=== PATIENT | female | born 1945 | race Caucasian/White ===

== ENCOUNTER 2023-06-09 02:12 | Inpatient (IN) | payer MEDICARE ==
[2023-06-09] VITALS (7 sets, daily range): BP systolic 121–159; BP diastolic 56–98; TEMP 98.3–99; O2SAT 94–100
[~2023-06-09] VITALS: Ht 170.2 cm; Wt 108.4 kg
[~2023-06-09 02:12] MED LIST: ACET325T53 PO; ASPI-1169 PO; ATOR40TA PO; CEPH250S PO; CHOL200013 PO; CLOP75TA15 PO; CRAN425C6 PO; DOCU-141 PO; HYDR-4209 PO; MAGN400O6 PO; MAGN400T8 PO; NA P133E RC; PALI156D IM; RISP2TAB5 PO
[2023-06-09 03:26] LABS: BASOPHILS # (AUTO) 0.2 K/uL (0.0-0.2); BASOPHILS % (AUTO) 2.3 % (0.0-2.0); EOSINOPHILS % (AUTO) 0.1 % (0.0-6.0); HEMATOCRIT 37 % (33-45); HEMOGLOBIN 12.5 g/dL (11.5-14.8); LYMPHOCYTES # (AUTO) 0.3 K/uL (0.8-4.8); LYMPHOCYTES % (AUTO) 4.2 % (20.0-44.0); MEAN CORPUSCULAR HEMOGLOBIN 31 PG (26.0-33.0); MEAN CORPUSCULAR HGB CONC 34 g/dl (31.0-36.0); MEAN CORPUSCULAR VOLUME 93 fL (82-100); MONOCYTES # (AUTO) 0.4 K/uL (0.1-1.30); MONOCYTES % (AUTO) 6.4 % (2.0-12.0); NEUTROPHILS # (AUTO) 6.1 K/uL (1.8-8.9); PLATELET COUNT (AUTO) 157 K/uL (150-450); RED BLOOD CELL COUNT(AUTO) 4.01 MIL/uL (4.0-5.2); RED CELL DISTRIBUTION WIDTH 14.3 % (11.5-15.0)
[2023-06-09 03:40] LABS: ALBUMIN 3.1 g/dL (3.4-5.0); BILIRUBIN,DIRECT 0.2 mg/dL (0.0-0.2); BILIRUBIN,TOTAL 0.9 mg/dL (0.2-1.0); CALCIUM, SERUM 8.4 mg/dL (8.5-10.1); CREATININE 0.8 mg/dL (0.6-1.3); POTASSIUM 3.6 mmol/L (3.5-5.1); TOTAL PROTEIN, SERUM 7.1 g/dL (6.4-8.2)
[2023-06-09 03:45] LABS: LACTIC ACID 1.2 mmol/L (0.4-2.0)
[2023-06-09] MEDS ORDERED: CEFEPIME 1 GM VIAL ONE (03:59)
[2023-06-09] MEDS: CEFEPIME 1 GM in IV D5W 50 ML IV ONE (04:10)
[2023-06-09] MEDS ORDERED: MAGNESIUM HYDROXIDE 30 ML UDC PO PRN (04:30)
[2023-06-09] MEDS ORDERED: Z GUARD REMEDY 4 OZ OINT TP PRN (04:30)
[2023-06-09] MEDS ORDERED: ONDANSETRON HCL/PF 4 MG/2 ML VIAL IVP PRN (04:30)
[2023-06-09] MEDS ORDERED: ENOXAPARIN SODIUM 40 MG/0.4 ML DISP.SYRIN SQ SCH (04:30)
[2023-06-09] MEDS ORDERED: ACETAMINOPHEN 325 MG TABLET ONE (05:21)
[2023-06-09] MEDS: ACETAMINOPHEN 325 MG TABLET PO PRN (05:24)
[2023-06-09] MEDS: PANTOPRAZOLE 40 MG TABLET.DR PO SCH (08:34)
[2023-06-09] MEDS ORDERED: APIX5TAB PO (08:47)
[2023-06-09] MEDS ORDERED: METO25TA6 PO (08:47)
[2023-06-09] MEDS ORDERED: ATOR10TA PO (08:47)
[2023-06-09] MEDS ORDERED: LOSA50TA39 PO (08:47)
[2023-06-09] MEDS: DOXYCYCLINE 100 MG in IV D5W 100 ML IV SCH (08:58)
[2023-06-09] MEDS: ALBUTEROL HALF STRENGTH 1.25 MG/3 ML VIAL.NEB NEB SCH (11:30)
[2023-06-09] MEDS: IPRATROPIUM NEB FS 0.5 MG/2.5 ML AMPUL.NEB NEB SCH (11:30)
[2023-06-09] MEDS: APIXABAN 5 MG TABLET PO SCH (16:29)
[2023-06-09] MEDS: METOPROLOL TARTRATE 25 MG TABLET PO SCH (16:44)
[2023-06-09] MEDS: IV NS 0.9% 250 ML IV PRN (17:47)
[2023-06-09] MEDS: FUROSEMIDE 20 MG/2 ML VIAL IV SCH (20:59)
[2023-06-10] VITALS (11 sets, daily range): BP systolic 106–132; BP diastolic 52–84; TEMP 98–98.8; O2SAT 95–100
[2023-06-10] MEDS: BENZONATATE 100 MG CAPSULE PO PRN (01:58)
[2023-06-10] MEDS: BENZONATATE 100 MG CAPSULE PO ONE (01:58)
[2023-06-10 06:49] LABS: BASOPHILS % (AUTO) 0.6 % (0.0-2.0); EOSINOPHILS % (AUTO) 0.2 % (0.0-6.0); HEMATOCRIT 37 % (33-45); HEMOGLOBIN 12.3 g/dL (11.5-14.8); LYMPHOCYTES % (AUTO) 16.2 % (20.0-44.0); MEAN CORPUSCULAR HEMOGLOBIN 31 PG (26.0-33.0); MEAN CORPUSCULAR HGB CONC 34 g/dl (31.0-36.0); MEAN CORPUSCULAR VOLUME 93 fL (82-100); MONOCYTES # (AUTO) 0.5 K/uL (0.1-1.30); MONOCYTES % (AUTO) 7.7 % (2.0-12.0); NEUTROPHILS # (AUTO) 4.7 K/uL (1.8-8.9); NEUTROPHILS % (AUTO) 75.3 % (43.0-81.0); PLATELET COUNT (AUTO) 154 K/uL (150-450); RED BLOOD CELL COUNT(AUTO) 3.96 MIL/uL (4.0-5.2); RED CELL DISTRIBUTION WIDTH 14.3 % (11.5-15.0); WHITE BLOOD COUNT (AUTO) 6.3 K/uL (4.3-11.0)
[2023-06-10 06:58] LABS: CREATININE 0.8 mg/dL (0.6-1.3); MAGNESIUM 1.8 mg/dL (1.8-2.4); PHOSPHORUS 3.8 mg/dL (2.5-4.9)
[2023-06-10] MEDS: LOSARTAN POTASSIUM 50 MG TABLET PO SCH (09:06)
[2023-06-10] MEDS: METOPROLOL TARTRATE 25 MG TABLET PO SCH (09:06)
[2023-06-10] MEDS: CEFTRIAXONE 1 G in IV D5W 50 ML IV SCH (09:07)
[2023-06-11] VITALS (15 sets, daily range): BP systolic 115–138; BP diastolic 57–77; TEMP 97.5–98.8; O2SAT 97–100
[2023-06-11] MEDS: DOXYCYCLINE HYCLATE (100 MG) 100 MG TABLET PO SCH (08:31)
[2023-06-11 14:17] LABS: BASOPHILS % (AUTO) 0.4 % (0.0-2.0); EOSINOPHILS % (AUTO) 0.4 % (0.0-6.0); HEMATOCRIT 38 % (33-45); HEMOGLOBIN 12.5 g/dL (11.5-14.8); LYMPHOCYTES # (AUTO) 0.9 K/uL (0.8-4.8); MEAN CORPUSCULAR HEMOGLOBIN 31 PG (26.0-33.0); MEAN CORPUSCULAR HGB CONC 33 g/dl (31.0-36.0); MEAN CORPUSCULAR VOLUME 92 fL (82-100); MONOCYTES # (AUTO) 0.7 K/uL (0.1-1.30); MONOCYTES % (AUTO) 12.6 % (2.0-12.0); NEUTROPHILS # (AUTO) 3.8 K/uL (1.8-8.9); NEUTROPHILS % (AUTO) 69.6 % (43.0-81.0); PLATELET COUNT (AUTO) 148 K/uL (150-450); RED BLOOD CELL COUNT(AUTO) 4.11 MIL/uL (4.0-5.2); RED CELL DISTRIBUTION WIDTH 14.3 % (11.5-15.0); WHITE BLOOD COUNT (AUTO) 5.5 K/uL (4.3-11.0)
[2023-06-12] VITALS (12 sets, daily range): BP systolic 100–128; BP diastolic 50–67; TEMP 97.2–98.8; O2SAT 96–100
[2023-06-12] MEDS: methylPREDNISolone SOD SUCC 125 MG/2ML VIAL IV SCH (15:54)
[2023-06-13] VITALS (14 sets, daily range): BP systolic 116–135; BP diastolic 56–70; TEMP 97.9–98.6; O2SAT 94–100
[2023-06-14] VITALS (18 sets, daily range): BP systolic 114–138; BP diastolic 55–80; TEMP 97.3–98.2; O2SAT 94–99
[2023-06-14 07:13] LABS: BASOPHILS % (AUTO) 0.1 % (0.0-2.0); EOSINOPHILS % (AUTO) 0.1 % (0.0-6.0); HEMATOCRIT 37 % (33-45); HEMOGLOBIN 12.6 g/dL (11.5-14.8); LYMPHOCYTES # (AUTO) 1.5 K/uL (0.8-4.8); LYMPHOCYTES % (AUTO) 20.5 % (20.0-44.0); MEAN CORPUSCULAR HEMOGLOBIN 31 PG (26.0-33.0); MEAN CORPUSCULAR HGB CONC 34 g/dl (31.0-36.0); MEAN CORPUSCULAR VOLUME 90 fL (82-100); MONOCYTES % (AUTO) 13.1 % (2.0-12.0); NEUTROPHILS % (AUTO) 66.2 % (43.0-81.0); PLATELET COUNT (AUTO) 170 K/uL (150-450); RED BLOOD CELL COUNT(AUTO) 4.12 MIL/uL (4.0-5.2); RED CELL DISTRIBUTION WIDTH 14.2 % (11.5-15.0); WHITE BLOOD COUNT (AUTO) 7.5 K/uL (4.3-11.0)
[2023-06-14 08:43] LABS: CALCIUM, SERUM 9.1 mg/dL (8.5-10.1); CREATININE 0.8 mg/dL (0.6-1.3); MAGNESIUM 1.8 mg/dL (1.8-2.4); PHOSPHORUS 3.4 mg/dL (2.5-4.9)
[2023-06-14] MEDS: methylPREDNISolone SOD SUCC 40 MG/ML VIAL IV SCH (09:06)
[2023-06-14] MEDS ORDERED: PRED10TA PO (17:18)
[2023-06-14] MEDS ORDERED: DOXY100C2 PO (17:18)
[2023-06-14] MEDS ORDERED: BUDE10.2 INH (17:18)
== END 2023-06-14 23:50 | disposition home health service (06) | DRG 202 ==
LOC: ER 02:13 → TELE1 07:39
PROVIDERS: ADMIT Internal Medicine; ATTEND Student in an Organized Health Care Education/Training Program
DX: J20.9 Acute bronchitis, unspecified (principal); E43 Unspecified severe protein-calorie malnutrition; J15.9 Unspecified bacterial pneumonia; J96.01 Acute respiratory failure with hypoxia; D68.59 Other primary thrombophilia; E66.01 Morbid (severe) obesity due to excess calories; E88.09 Other disorders of plasma-protein metabolism, not elsewhere classified; F20.9 Schizophrenia, unspecified; F31.9 Bipolar disorder, unspecified; I48.91 Unspecified atrial fibrillation; K21.9 Gastro-esophageal reflux disease without esophagitis; Z79.82 Long term (current) use of aspirin; Z86.73 Personal history of transient ischemic attack (TIA), and cerebral infarction without residual deficits; Z20.822 Contact with and (suspected) exposure to COVID-19; J98.4 Other disorders of lung; Z68.37 Body mass index [BMI] 37.0-37.9, adult; I51.89 Other ill-defined heart diseases; I10 Essential (primary) hypertension
CPT/HCPCS: 36415; 71045-TC; 71250-TC; 80048-TC; 80061-TC; 80076-TC; 83605-TC; 83735-TC; 83880; 84100-TC; 84484-TC; 85025-TC; 87040-TC; 93307-TC; 94760-TC; 94799-TC; 97112-TC; 97116-TC; 97530-TC; A4223; G0378; J0692; J0696; J1940; J2920; J2930; J3490; J7050; J7060

== ENCOUNTER 2025-01-19 18:40 | Inpatient (IN) | payer MEDICARE ==
[~2025-01-19] VITALS: Ht 165.1 cm; Wt 112.0 kg
[~2025-01-19 18:40] MED LIST changes: -ACET325T53 PO; +APIX5TAB PO; -ASPI-1169 PO; +ATOR10TA PO; -ATOR40TA PO; +BUDE10.2 INH; -CEPH250S PO; -CHOL200013 PO; -CLOP75TA15 PO; -CRAN425C6 PO; -DOCU-141 PO; +DOXY100C2 PO; -HYDR-4209 PO; +LOSA50TA39 PO; -MAGN400O6 PO; -MAGN400T8 PO; +METO25TA6 PO; -NA P133E RC; -PALI156D IM; +PRED10TA PO; -RISP2TAB5 PO
[2025-01-19] MEDS ORDERED: ONDANSETRON HCL/PF 4 MG/2 ML VIAL ONE (19:20)
[2025-01-19] MEDS ORDERED: MORPHINE SULFATE INJ 2 MG/ML DISP.SYRIN ONE (19:20)
[2025-01-19] MEDS ORDERED: FAMOTIDINE/PF INJ 20 MG/2 ML VIAL IV ONE (19:21)
[2025-01-19] MEDS: IV NS 0.9% 500 ML BAG IV ONE (19:26)
[2025-01-19 19:27] LABS: PLATELET COUNT (AUTO) 200 K/uL (150-450); RED BLOOD CELL COUNT(AUTO) 4.66 MIL/uL (4.0-5.2); RED CELL DISTRIBUTION WIDTH 14.8 % (11.5-15.0); WHITE BLOOD COUNT (AUTO) 12.2 K/uL (4.3-11.0)
[2025-01-19] MEDS: ONDANSETRON HCL/PF 4 MG/2 ML VIAL IV ONE (19:27)
[2025-01-19] MEDS: MORPHINE SULFATE INJ 2 MG/ML DISP.SYRIN IV ONE ×2 (19:27→22:09)
[2025-01-19] MEDS: FAMOTIDINE/PF INJ 20 MG/2 ML VIAL IV ONE (19:27)
[2025-01-19 19:35] LABS: CALCIUM, SERUM 8.7 mg/dL (8.5-10.1); CREATININE 0.8 mg/dL (0.6-1.3); SODIUM SERUM 142 mmol/L (136-145); UREA NITROGEN, BLOOD 19 mg/dL (7-18)
[2025-01-19] MEDS ORDERED: IOHEXOL-350 100 ML VIAL IV ONE (19:38)
[2025-01-19] MEDS ORDERED: IV NS 0.9% 250 ML IV ONE (19:38)
[2025-01-19] MEDS ORDERED: CT SWABBABLE VALVE TRANS SET 1 EA INFUS.SET MC ONE (19:38)
[2025-01-19 19:40] LABS: INR 1.13 (0.91-1.10)
[2025-01-19 19:41] LABS: ASPARTATE AMINOTRANSFERASE 28 U/L (15-37); TOTAL PROTEIN, SERUM 7.4 g/dL (6.4-8.2)
[2025-01-19 21:15] LABS: OCCULT BLOOD STOOL POSITIVE (NEGATIVE)
[2025-01-19] MEDS ORDERED: MORPHINE SULFATE INJ 4 MG/ML DISP.SYRIN ONE (21:57)
[2025-01-19] MEDS ORDERED: PIPERACI/TAZO 3.375GM/D5W 50ML PB IV ONE (21:57)
[2025-01-19] MEDS: PIPERACILLIN /TAZOBACTAM 3.375 G in IV D5W 50 ML IV ONE (22:09)
[2025-01-19] MEDS ORDERED: DOSING PER PHARMACY-ZOSYN IV 1 EA EA XX PRN (23:00)
[2025-01-19] MEDS ORDERED: ACETAMINOPHEN 325 MG TABLET PO PRN (23:00)
[2025-01-19] MEDS ORDERED: MAG HYDROX/AL HYDROX/SIMETH 30 ML UDC PO PRN (23:00)
[2025-01-19] MEDS ORDERED: MAGNESIUM HYDROXIDE 30 ML UDC PO PRN (23:00)
[2025-01-20] MEDS: PANTOPRAZOLE 40 MG VIAL IV SCH (00:47)
[2025-01-20] MEDS: IV NS 0.9% 1,000 ML IV PRN (00:47)
[2025-01-20 01:20] VITALS: BP 149/69; TEMP 98.1; O2SAT 98
[2025-01-20] MEDS: PIPERACI/TAZO 3.375GM/D5W 50ML PB IV ONE (05:11)
[2025-01-20] MEDS: PIPERACILLIN /TAZOBACTAM 3.375 G in IV D5W 50 ML IV ONE (05:15)
[2025-01-20] MEDS: ONDANSETRON HCL/PF 4 MG/2 ML VIAL IVP PRN (05:23)
[2025-01-20 07:09] LABS: PLATELET COUNT (AUTO) 175 K/uL (150-450); RED BLOOD CELL COUNT(AUTO) 4.33 MIL/uL (4.0-5.2); RED CELL DISTRIBUTION WIDTH 14.5 % (11.5-15.0); WHITE BLOOD COUNT (AUTO) 12.0 K/uL (4.3-11.0)
[2025-01-20 07:21] LABS: ASPARTATE AMINOTRANSFERASE 24.0 U/L (15-37); CALCIUM, SERUM 7.9 mg/dL (8.5-10.1); CREATININE 0.9 mg/dL (0.6-1.3); PHOSPHORUS 4.7 mg/dL (2.5-4.9); SODIUM SERUM 144.0 mmol/L (136-145); TOTAL PROTEIN, SERUM 6.2 g/dL (6.4-8.2); UREA NITROGEN, BLOOD 15.0 mg/dL (7-18)
[2025-01-20 07:29] LABS: INR 1.11 (0.91-1.10)
[2025-01-20 08:00] VITALS: BP 127/81; TEMP 97.5; O2SAT 94
[2025-01-20] MEDS ORDERED: SPIR25TA6 PO (08:21)
[2025-01-20] MEDS ORDERED: FURO-145 PO (08:21)
[2025-01-20] MEDS ORDERED: BRIM5DRO11 LEFTEYE (08:21)
[2025-01-20] MEDS ORDERED: ATOR40TA PO (08:21)
[2025-01-20] MEDS ORDERED: WEGOVY PO (08:21)
[2025-01-20] MEDS ORDERED: UBID100C45 PO (09:06)
[2025-01-20] MEDS ORDERED: OMEG10006 PO (09:06)
[2025-01-20] MEDS ORDERED: MULT-1160 PO (09:06)
[2025-01-20] MEDS ORDERED: CALC-1036 PO (09:06)
[2025-01-20] MEDS ORDERED: CHOL100043 PO (09:06)
[2025-01-20] MEDS ORDERED: MULT-1095 PO (09:06)
[2025-01-20] MEDS ORDERED: HOME MED MISCELLANEOUS XX SCH ×4 (10:30)
[2025-01-20] MEDS ORDERED: MORPHINE SULFATE INJ 2 MG/ML DISP.SYRIN IV PRN (11:00)
[2025-01-20] MEDS: MULTIVIT W/MINERALS 1 TAB TABLET PO SCH (11:28)
[2025-01-20 12:00] VITALS: BP 133/60; TEMP 98.4; O2SAT 93
[2025-01-20] MEDS: POTASSIUM CHLORIDE 20 MEQ POWDER PACKET PO ONE (13:54)
[2025-01-20] MEDS: PIPERACILLIN /TAZOBACTAM 3.375 G in IV D5W 100 ML IV SCH (13:55)
[2025-01-20 16:00] VITALS: BP 140/60; TEMP 97.7; O2SAT 93
[2025-01-20] MEDS: BRIMONIDINE TARTRATE OPHT SOLN 5 ML BOTTLE LEFTEYE SCH (17:19)
[2025-01-20] MEDS: DILTIAZEM HCL CD 240 MG PO SCH (17:19)
[2025-01-20] MEDS: METOPROLOL TARTRATE 25 MG TABLET PO SCH (17:19)
[2025-01-20 20:00] VITALS: BP 117/55; TEMP 97.5; O2SAT 95
[2025-01-21 07:46] LABS: PLATELET COUNT (AUTO) 190 K/uL (150-450); RED BLOOD CELL COUNT(AUTO) 4.23 MIL/uL (4.0-5.2); RED CELL DISTRIBUTION WIDTH 14.5 % (11.5-15.0); WHITE BLOOD COUNT (AUTO) 11.7 K/uL (4.3-11.0)
[2025-01-21 08:00] VITALS: BP 127/65; TEMP 97.7; O2SAT 95
[2025-01-21 09:04] LABS: CALCIUM, SERUM 8.0 mg/dL (8.5-10.1); CREATININE 0.9 mg/dL (0.6-1.3); SODIUM SERUM 144.0 mmol/L (136-145); UREA NITROGEN, BLOOD 14.0 mg/dL (7-18)
[2025-01-21 09:09] LABS: PHOSPHORUS 3.3 mg/dL (2.5-4.9)
[2025-01-21] MEDS ORDERED: HYDROCODONE/APAP 5/325MG TABLET PO PRN (10:00)
[2025-01-21] MEDS: CHOLECALCIFEROL 1,000 UNIT TABLET (VIT D3) GT SCH (10:25)
[2025-01-21] MEDS: ATORVASTATIN 40 MG TABLET PO SCH (10:25)
[2025-01-21] MEDS: LOSARTAN POTASSIUM 50 MG TABLET PO SCH (10:27)
[2025-01-21] MEDS: APIXABAN 5 MG TABLET PO SCH (10:31)
[2025-01-21] MEDS: SPIRONOLACTONE 25 MG TABLET PO SCH (10:32)
[2025-01-21 16:00] VITALS: BP 107/50; TEMP 97.5; O2SAT 95
[2025-01-21 20:00] VITALS: BP 113/45; TEMP 97.5; O2SAT 95
[2025-01-22 06:44] LABS: PLATELET COUNT (AUTO) 161 K/uL (150-450); RED BLOOD CELL COUNT(AUTO) 3.89 MIL/uL (4.0-5.2); RED CELL DISTRIBUTION WIDTH 14.9 % (11.5-15.0); WHITE BLOOD COUNT (AUTO) 10.2 K/uL (4.3-11.0)
[2025-01-22 06:56] LABS: CALCIUM, SERUM 7.9 mg/dL (8.5-10.1); CREATININE 1.0 mg/dL (0.6-1.3); SODIUM SERUM 141.0 mmol/L (136-145); UREA NITROGEN, BLOOD 16.0 mg/dL (7-18)
[2025-01-22 08:00] VITALS: BP 117/50; TEMP 97.5; O2SAT 100
[2025-01-22] MEDS: POTASSIUM CHLORIDE 20 MEQ POWDER PACKET PO ONE ×2 (09:52→12:36)
[2025-01-22] MEDS ORDERED: IOHEXOL-350 100 ML VIAL IV ONE (13:29)
[2025-01-22] MEDS ORDERED: IV NS 0.9% 250 ML IV ONE (13:30)
[2025-01-22 16:00] VITALS: BP 121/63; TEMP 97.9; O2SAT 95
[2025-01-22 20:00] VITALS: BP 127/66; TEMP 98.2; O2SAT 94
[2025-01-23 00:09] VITALS: BP 127/66; TEMP 98.2; O2SAT 94
[2025-01-23 07:57] LABS: CALCIUM, SERUM 8.2 mg/dL (8.5-10.1); CREATININE 0.9 mg/dL (0.6-1.3); SODIUM SERUM 142.0 mmol/L (136-145); UREA NITROGEN, BLOOD 13.0 mg/dL (7-18)
[2025-01-23 09:27] VITALS: BP 160/71; TEMP 97.5; O2SAT 94
[2025-01-23] MEDS ORDERED: AMOX-430 PO (09:28)
[2025-01-23] MEDS ORDERED: ONDA4TAB5 PO (09:28)
[2025-01-23 09:58] VITALS: BP 160/71
[2025-01-23] MEDS: POTASSIUM CHLORIDE 20 MEQ TAB.PRT.SR PO ONE (09:58)
== END 2025-01-23 12:15 | disposition home or self-care (01) | DRG 392 ==
LOC: ER 18:49 → MED 22:47 → TELE 23:38 → MED 01-20 17:16
PROVIDERS: ADMIT Nurse Practitioner Family; ATTEND Nurse Practitioner Acute Care
DX: A08.4 Viral intestinal infection, unspecified (principal); D68.59 Other primary thrombophilia; I42.1 Obstructive hypertrophic cardiomyopathy; I48.20 Chronic atrial fibrillation, unspecified; I50.9 Heart failure, unspecified; I50.810 Right heart failure, unspecified; E86.0 Dehydration; Z79.01 Long term (current) use of anticoagulants; E66.01 Morbid (severe) obesity due to excess calories; I11.0 Hypertensive heart disease with heart failure; F20.9 Schizophrenia, unspecified; I34.81 Nonrheumatic mitral (valve) annulus calcification; I77.1 Stricture of artery; Z68.41 Body mass index [BMI] 40.0-44.9, adult; E66.9 Obesity, unspecified; E78.5 Hyperlipidemia, unspecified; K57.30 Diverticulosis of large intestine without perforation or abscess without bleeding; Z86.73 Personal history of transient ischemic attack (TIA), and cerebral infarction without residual deficits; F31.9 Bipolar disorder, unspecified; E87.6 Hypokalemia; H40.9 Unspecified glaucoma; Z79.51 Long term (current) use of inhaled steroids; E80.6 Other disorders of bilirubin metabolism; I71.43 Infrarenal abdominal aortic aneurysm, without rupture; R73.9 Hyperglycemia, unspecified; I51.9 Heart disease, unspecified
CPT/HCPCS: 36415; 71045-TC; 76700-TC; 80048-TC; 80076-TC; 82272-TC; 83690-TC; 83735-TC; 84100-TC; 84484-TC; 85025-TC; 85027-TC; 85610-TC; 85730-TC; 87040-TC; 87045-TC; 93307-TC; 97110-TC; 97116-TC; 97530-TC; A4223; G0378; J1308; J2270; J2405; J2470; J2543; J7030; J7040; J7050; J7060; Q9967